=== PATIENT | female | born 1935 | race Caucasian/White ===

== ENCOUNTER 2021-12-13 16:40 | Emergency (ER) | payer OTHER ==
[~2021-12-13] VITALS: Ht 167.6 cm; Wt 50.3 kg
[2021-12-13] MEDS ORDERED: MELA3TAB41 PO (17:10)
[2021-12-13] MEDS ORDERED: ATOR40TA PO (17:10)
[2021-12-13] MEDS ORDERED: LATA2.5D15 EACHEYE (17:10)
[2021-12-13] MEDS ORDERED: LISI20TA30 PO (17:10)
[2021-12-13] MEDS ORDERED: BETA1TAB19 PO (17:10)
[2021-12-13] MEDS ORDERED: ASPI81TA31 PO (17:10)
[2021-12-13] MEDS ORDERED: DOCU100C36 PO (17:10)
[2021-12-13] MEDS ORDERED: FURO-152 PO (17:10)
--- NOTE | 2021-12-13 17:16 | NUR ---
PT out of ER for CT.
--- NOTE | 2021-12-13 17:57 | NUR ---
Pt to be d/c back to [facility], called [facility] for transport, eta 183.
--- NOTE | 2021-12-13 18:57 | NUR ---
Report given to transfering test clerk. all belongings sent w/ pt.Patient discharged to home in stable condition. Written and verbal after care instructions given. Patient verbalizes understanding of instructions. Stressed follow up or return to ER for worsening s/s.
[2021-12-13 19:00] VITALS: BP 114/60
== END 2021-12-13 19:11 | disposition home or self-care (01) ==
LOC: ER 16:48
DX: S00.83XA Contusion of other part of head, initial encounter (principal); S80.12XA Contusion of left lower leg, initial encounter; K21.9 Gastro-esophageal reflux disease without esophagitis; I25.2 Old myocardial infarction; I25.10 Atherosclerotic heart disease of native coronary artery without angina pectoris; E78.5 Hyperlipidemia, unspecified; I12.9 Hypertensive chronic kidney disease with stage 1 through stage 4 chronic kidney disease, or unspecified chronic kidney disease; N18.2 Chronic kidney disease, stage 2 (mild); Z88.5 Allergy status to narcotic agent; Z79.82 Long term (current) use of aspirin; Z79.899 Other long term (current) drug therapy; W01.0XXA Fall on same level from slipping, tripping and stumbling without subsequent striking against object, initial encounter; Y93.89 Activity, other specified; Y92.89 Other specified places as the place of occurrence of the external cause; Y99.8 Other external cause status
CPT/HCPCS: 70450; A4663

== ENCOUNTER 2021-12-25 10:00 | Inpatient (IN) | payer OTHER ==
[~2021-12-25] VITALS: Ht 154.9 cm; Wt 50.3 kg
[~2021-12-25 10:00] MED LIST: ASPI81TA31 PO; ATOR40TA PO; BETA1TAB19 PO; DOCU100C36 PO; FURO-152 PO; LATA2.5D15 EACHEYE; LISI20TA30 PO; MELA3TAB41 PO
[2021-12-25 10:55] LABS: MEAN CORPUSCULAR HEMOGLOBIN 24.7 uug (24.7-32.8); MEAN CORPUSCULAR VOLUME 76.5 fL (75.5-95.3); PLATELET COUNT (AUTO) 347 K/uL (179-408)
[2021-12-25] MEDS ORDERED: SERT25TA PO (10:59)
[2021-12-25] MEDS ORDERED: MV-M1TAB18 PO (10:59)
[2021-12-25] MEDS ORDERED: NAPR500T6 PO (10:59)
[2021-12-25] MEDS ORDERED: CYAN-51 PO (10:59)
[2021-12-25 11:10] LABS: ALANINE AMINOTRANSFERASE 17 U/L (14-59); ALKALINE PHOSPHATASE 65 U/L (50-136); ASPARTATE AMINOTRANSFERASE 18 U/L (15-37); BILIRUBIN,DIRECT 0.1 mg/dL (0.0-0.2); BILIRUBIN,TOTAL 0.5 mg/dL (0.2-1.0); CARBON DIOXIDE 28 mmol/L (21-32); CHLORIDE 104 mmol/L (98-107); GLUCOSE 131 mg/dL (74-106); LIPASE 105 U/L (73-393); POTASSIUM 3.5 mmol/L (3.5-5.1); UREA NITROGEN, BLOOD 16 mg/dL (7-18)
[2021-12-25] MEDS ORDERED: SWABABLE VALVE TRANSFER SET EA MC ONE (11:22)
[2021-12-25] MEDS ORDERED: IV NORMAL SALINE 250 ML IV ONE (11:22)
[2021-12-25] MEDS ORDERED: IOHEXOL 300MG/ML 100 ML INFUS..BTL ONE (11:22)
[2021-12-25 11:23] LABS: *BILIRUBIN,URIN NEGATIVE (NEGATIVE); *BLOOD, URINE 2+ (NEGATIVE); *CLARITY,URINE CLEAR (CLEAR); *COLOR,URINE YELLOW (YELLOW); *KETONES,URINE NEGATIVE (NEGATIVE); *UROBILINOGEN,URINE 0.2 E.U./dl (NORMAL); LEUKOCYTE ESTERASE ,URINE 1+ (NEGATIVE); NITRITE, URINE NEGATIVE (NEGATIVE); PH,URINE 5.5 (5.0-8.0); UGLUCOSE NEGATIVE (NEGATIVE)
--- NOTE | 2021-12-25 11:41 | NUR ---
PT IS IN ROOM #2B. DR CORTES EVALUATED THE PT.
[2021-12-25] MEDS: CEFTRIAXONE 1 G in IV DEXTROSE 5% 50 ML IV SCH (13:54)
[2021-12-25] MEDS ORDERED: CEFTRIAXONE /D5W 50ML IVPB **ER PYXIS IV ONE (14:07)
[2021-12-25 15:25] VITALS: BP 128/65
--- NOTE | 2021-12-25 15:33 | NUR ---
REPORT WAS GIVEN TO RN M/S. PT WAS TRANSFERED TO ROOM #311.
[2021-12-25 15:35] LABS: RBC,URINE 50-80 /HPF (0-3)
[2021-12-25 15:36] LABS: BACTERIA,URINE NONE SEEN /HPF (NONE SEEN); SQUAMOUS EPITHELIAL CELL,UR FEW /HPF (NONE SEEN)
--- NOTE | 2021-12-25 15:58 | NUR ---
86 YEAR OLD FEMALE RECEIVED TO ROOM 311.PT IS AXOX4 .ORIENT THE PT TO ROOM CALL LIGHT WITH IN REACH VS ARE STABLE MD NOTIFIED FOR THE ADMISSION
--- NOTE | 2021-12-25 19:00 | NUR ---
Received patient on bed, alert, no shortness of breath noted, no complaint of pain.
[2021-12-25] MEDS ORDERED: MAGNESIUM HYDROXIDE 30 ML LIQUID UDC PO PRN (20:00)
[2021-12-25] MEDS ORDERED: ONDANSETRON 4 MG/2 ML VIAL IV PRN (20:00)
[2021-12-25] MEDS ORDERED: ACETAMINOPHEN 325 MG TABLET PO PRN (20:00)
[2021-12-25] MEDS: ATORVASTATIN 40 MG TABLET PO SCH (21:51)
[2021-12-25] MEDS: MELATONIN 3 MG TABLET PO SCH (21:51)
[2021-12-26] MEDS: PANTOPRAZOLE SODIUM 40 MG TABLET.DR PO SCH (06:18)
--- NOTE | 2021-12-26 06:22 | NUR ---
Patient slept well at night. IV line accidentally removed while she was sleeping.
[2021-12-26 06:46] LABS: HEMATOCRIT 26.4 % (31.2-41.9); MEAN CORPUSCULAR HEMOGLOBIN 24.4 uug (24.7-32.8); MEAN CORPUSCULAR VOLUME 76.7 fL (75.5-95.3); PLATELET COUNT (AUTO) 305 K/uL (179-408)
[2021-12-26 07:26] LABS: BILIRUBIN,TOTAL 0.4 mg/dL (0.2-1.0); CREATININE 0.6 mg/dL (0.6-1.3); MAGNESIUM 2.2 mg/dL (1.8-2.4); PHOSPHOROUS 3.5 mg/dL (2.5-4.9); POTASSIUM 3.8 mmol/L (3.5-5.1)
[2021-12-26 08:00] VITALS: BP 149/70
[2021-12-26 08:00] LABS: THYROID STIMULATING HORMONE 0.435 mIU/mL (0.358-3.740)
[2021-12-26] MEDS ORDERED: Medication Not On Formulary EA (Sertraline Hcl (Zoloft) 1 TAB) PO SCH (09:00)
[2021-12-26] MEDS ORDERED: Medication Not On Formulary EA (Mv-Mn/Iron/FA/Herbal Cmplx#190 (Vitamin D3 Complete Capl PO SCH (09:00)
[2021-12-26] MEDS ORDERED: BETA CAROTENE/VIT C & E/MIN TABLET PO SCH (09:00)
[2021-12-26] MEDS: ASPIRIN 81 MG TAB.CHEW PO SCH (09:45)
[2021-12-26] MEDS: DOCUSATE SODIUM 100 MG CAPSULE PO SCH ×2 (09:45→16:37)
[2021-12-26] MEDS: SERTRALINE HCL 50 MG TABLET PO SCH (09:45)
[2021-12-26] MEDS: FUROSEMIDE 20 MG TABLET PO SCH (09:46)
[2021-12-26] MEDS: MULTIVIT, IRON, MIN NO. 8, FA TABLET PO SCH (09:46)
[2021-12-26] MEDS: LISINOPRIL 20 MG TABLET PO SCH (09:47)
[2021-12-26] MEDS: CYANOCOBALAMIN 1,000 MCG TABLET PO SCH (09:47)
--- NOTE | 2021-12-26 11:04 | NUR ---
Pt is a/ox 3-4, forgetful at times. pt stated that she lives in a facility possible rehab but does not recall name. No complaint of pain at this time. Call light within reach, comfort measures provided. Will continue to monitor.
[2021-12-26 11:24] VITALS: BP 124/63
[2021-12-26] MEDS: CEFTRIAXONE 1 G in IV DEXTROSE 5% 50 ML IV SCH (14:13)
[2021-12-26 16:21] VITALS: BP 123/45
[2021-12-26] MEDS: LATANOPROST OPHT DROP 2.5 ML BOTTLE EACHEYE SCH (20:36)
[2021-12-26] MEDS: ATORVASTATIN 40 MG TABLET PO SCH (20:36)
[2021-12-26] MEDS: MELATONIN 3 MG TABLET PO SCH (20:36)
[2021-12-26 20:53] VITALS: BP 103/58
--- NOTE | 2021-12-27 03:43 | NUR ---
Patient is uncooperative, attempting to leave hospital, wanting to walk home. Patient is concerned in regards to right knee scab. made aware wound consult will be done tomorrow but patient is adamant about going home to put on medicine her surgeon gave her. Patient unable to name medicine or surgeon.
--- NOTE | 2021-12-27 05:27 | NUR ---
Patient slept seldom. Frequent safety checks made by staff. Confusion noted with multiple episodes of getting out of bed without calling for assistance. Still noted with unsteady gait, weakness most prominent to right leg. Patient is a high risk for falls. All needs attended, safety measures applied.
[2021-12-27] MEDS: PANTOPRAZOLE SODIUM 40 MG TABLET.DR PO SCH (06:17)
[2021-12-27] MEDS: CYANOCOBALAMIN 1,000 MCG TABLET PO SCH (08:06)
[2021-12-27] MEDS: ASPIRIN 81 MG TAB.CHEW PO SCH (08:06)
[2021-12-27] MEDS: FUROSEMIDE 20 MG TABLET PO SCH (08:06)
[2021-12-27] MEDS: MULTIVIT, IRON, MIN NO. 8, FA TABLET PO SCH (08:06)
[2021-12-27] MEDS: DOCUSATE SODIUM 100 MG CAPSULE PO SCH ×2 (08:06→17:18)
[2021-12-27] MEDS: LISINOPRIL 20 MG TABLET PO SCH (08:06)
[2021-12-27] MEDS: SERTRALINE HCL 50 MG TABLET PO SCH (08:06)
[2021-12-27 09:23] LABS: HEMATOCRIT 30.5 % (31.2-41.9); MEAN CORPUSCULAR HEMOGLOBIN 24.6 uug (24.7-32.8); MEAN CORPUSCULAR VOLUME 76.2 fL (75.5-95.3); PLATELET COUNT (AUTO) 355 K/uL (179-408)
[2021-12-27] MEDS ORDERED: MIRALAX 17 GM POWD.PACK PO ONE (09:30)
[2021-12-27 12:00] VITALS: BP 130/68
[2021-12-27] MEDS: CEFTRIAXONE 1 G in IV DEXTROSE 5% 50 ML IV SCH (12:49)
[2021-12-27] MEDS: SOD FERRIC GLUC COMPLX/SUCROSE 125 MG in IV NORMAL SALINE 100 ML IV SCH (13:24)
--- NOTE | 2021-12-27 14:01 | NUR ---
WOUND CARE CONSULT: PT PRESENTS INDEPENDENT WITH BED MOBILITY, CONTINENT AND WITH LARGE DRY ESCHAR TO RT KNEE, PRESENT ON ADMISSION. DR KODAK HALE CALLED FOR SURGICAL CONSULT. IN AGREEMENT WITH PLAN OF CARE.
--- NOTE | 2021-12-27 15:38 | NUR ---
patient frequently gets up from bed and attempts to ambulate, gait is unsteady, redirected patient but patient is forgetful and continues to get up from bed. very close monitoring provided for safety.
[2021-12-27 16:00] VITALS: BP 135/83
--- NOTE | 2021-12-27 19:30 | NUR ---
Patient attempting to get out of bed. She is alert to self with confusion. Reorientation to reality and environment with little help. Constant monitoring needed for safety since patient gait is weak and unsteady. Will continue to make frequent checks with the assistance of other staff and bed alarm. Denies any chest pain. Right FA IV is intact and patent. Call light within reach.
[2021-12-27 20:00] VITALS: BP 140/57
[2021-12-27] MEDS: MELATONIN 3 MG TABLET PO SCH (21:14)
[2021-12-27] MEDS: ATORVASTATIN 40 MG TABLET PO SCH (21:14)
[2021-12-27] MEDS: LATANOPROST OPHT DROP 2.5 ML BOTTLE EACHEYE SCH (21:14)
[2021-12-28 04:00] VITALS: BP 135/55
[2021-12-28] MEDS: PANTOPRAZOLE SODIUM 40 MG TABLET.DR PO SCH (06:28)
[2021-12-28] MEDS: MULTIVIT, IRON, MIN NO. 8, FA TABLET PO SCH (08:04)
[2021-12-28] MEDS: ASPIRIN 81 MG TAB.CHEW PO SCH (08:04)
[2021-12-28] MEDS: DOCUSATE SODIUM 100 MG CAPSULE PO SCH (08:04)
[2021-12-28] MEDS: LISINOPRIL 20 MG TABLET PO SCH (08:05)
[2021-12-28] MEDS: CYANOCOBALAMIN 1,000 MCG TABLET PO SCH (08:05)
[2021-12-28] MEDS: SERTRALINE HCL 50 MG TABLET PO SCH (08:05)
[2021-12-28] MEDS: FUROSEMIDE 20 MG TABLET PO SCH (08:05)
[2021-12-28] MEDS ORDERED: ATOR10TA PO (11:28)
[2021-12-28] MEDS ORDERED: CEPH500C2 PO (11:28)
[2021-12-28] MEDS ORDERED: ACID1TAB4 PO (11:28)
[2021-12-28 11:29] VITALS: BP 139/77
[2021-12-28] MEDS: CEFTRIAXONE 1 G in IV DEXTROSE 5% 50 ML IV SCH (12:53)
[2021-12-28] MEDS: SOD FERRIC GLUC COMPLX/SUCROSE 125 MG in IV NORMAL SALINE 100 ML IV SCH (13:49)
--- NOTE | 2021-12-28 15:54 | NUR ---
[facility] all questions answered.
[2021-12-28 16:05] VITALS: BP 111/55
--- NOTE | 2021-12-28 16:30 | NUR ---
new discharge orders, unable to to review discharge instructions with patient due to cognitive impairment. belonging list inventory complete.
--- NOTE | 2021-12-28 16:44 | NUR ---
power chisel operator in unit, report given all questions answered.
[2021-12-28] MEDS ORDERED: ENSURE ENLIVE (VAN) 240 ML LIQUID PO SCH (17:00)
[2021-12-29] MEDS ORDERED: NUTRISOURCE FIBER 4 GM PACKET GT SCH (09:00)
== END 2021-12-28 16:46 | DRG 689 ==
LOC: ER 10:00 → MEDSURG3 15:07
PROVIDERS: ADMIT Internal Medicine; ATTEND Internal Medicine
DX: N13.6 Pyonephrosis (principal); E43 Unspecified severe protein-calorie malnutrition; D68.59 Other primary thrombophilia; I13.0 Hypertensive heart and chronic kidney disease with heart failure and stage 1 through stage 4 chronic kidney disease, or unspecified chronic kidney disease; K92.2 Gastrointestinal hemorrhage, unspecified; Z96.641 Presence of right artificial hip joint; Z90.710 Acquired absence of both cervix and uterus; H54.8 Legal blindness, as defined in USA; Z74.09 Other reduced mobility; R73.03 Prediabetes; E21.3 Hyperparathyroidism, unspecified; B35.1 Tinea unguium; K21.9 Gastro-esophageal reflux disease without esophagitis; K44.9 Diaphragmatic hernia without obstruction or gangrene; E78.5 Hyperlipidemia, unspecified; K59.00 Constipation, unspecified; D50.0 Iron deficiency anemia secondary to blood loss (chronic); F03.90 Unspecified dementia, unspecified severity, without behavioral disturbance, psychotic disturbance, mood disturbance, and anxiety; I25.2 Old myocardial infarction; I50.9 Heart failure, unspecified; M19.90 Unspecified osteoarthritis, unspecified site; N18.2 Chronic kidney disease, stage 2 (mild); E78.00 Pure hypercholesterolemia, unspecified; I25.10 Atherosclerotic heart disease of native coronary artery without angina pectoris; I73.9 Peripheral vascular disease, unspecified; I70.0 Atherosclerosis of aorta; G56.02 Carpal tunnel syndrome, left upper limb; G62.9 Polyneuropathy, unspecified; Z85.828 Personal history of other malignant neoplasm of skin; Z96.651 Presence of right artificial knee joint; H35.30 Unspecified macular degeneration; Z95.1 Presence of aortocoronary bypass graft; Z79.82 Long term (current) use of aspirin; Z88.5 Allergy status to narcotic agent; I35.1 Nonrheumatic aortic (valve) insufficiency; Z20.822 Contact with and (suspected) exposure to COVID-19; Z87.442 Personal history of urinary calculi; Z87.440 Personal history of urinary (tract) infections; Z79.899 Other long term (current) drug therapy
CPT/HCPCS: 36415; 71045; 82378; 83550; 83605; 83690; 83735; 84100; 84443; 84484; 85025; 85730; 87040; 87086; 93005; 97161; A4663; G0378; J0696; J2916; J3490; J7030; J7050; J7060; Q9967

== ENCOUNTER 2022-01-18 09:47 | Emergency (ER) | payer OTHER ==
[~2022-01-18] VITALS: Ht 154.9 cm; Wt 50.8 kg
[~2022-01-18 09:47] MED LIST changes: +ACID1TAB4 PO; +ATOR10TA PO; -ATOR40TA PO; +CEPH500C2 PO; +CYAN-51 PO; +MV-M1TAB18 PO; +SERT25TA PO
[2022-01-18] MEDS ORDERED: IOHEXOL 300MG/ML 100 ML INFUS..BTL ONE (10:12)
[2022-01-18] MEDS ORDERED: IV NORMAL SALINE 100 ML BAG IV ONE (10:15)
[2022-01-18] MEDS ORDERED: ONDANSETRON 4 MG/2 ML VIAL IV ONE (10:15)
[2022-01-18] MEDS ORDERED: AMOX500T2 PO (10:17)
[2022-01-18] MEDS ORDERED: NAPR500T6 PO (10:17)
[2022-01-18] MEDS ORDERED: MV-M1TAB18 PO (10:17)
[2022-01-18] MEDS ORDERED: ONDANSETRON 4 MG/2 ML VIAL ONE (10:20)
--- NOTE | 2022-01-18 10:24 | NUR ---
Patient refused IV MD Wicho notified.
[2022-01-18] MEDS ORDERED: KETO5DRO83 EACHEYE (10:39)
[2022-01-18 12:01] LABS: HEMATOCRIT 33.8 % (31.2-41.9); MEAN CORPUSCULAR HEMOGLOBIN 25.9 uug (24.7-32.8); MEAN CORPUSCULAR VOLUME 80.3 fL (75.5-95.3); PLATELET COUNT (AUTO) 318 K/uL (179-408)
[2022-01-18 12:04] LABS: CARBON DIOXIDE 26 mmol/L (21-32); CHLORIDE 104 mmol/L (98-107); CREATININE 0.9 mg/dL (0.6-1.3); GLUCOSE 101 mg/dL (74-106); POTASSIUM 4.7 mmol/L (3.5-5.1); UREA NITROGEN, BLOOD 21 mg/dL (7-18)
[2022-01-18 12:10] LABS: ALANINE AMINOTRANSFERASE 25 U/L (14-59); ALKALINE PHOSPHATASE 65 U/L (50-136); ASPARTATE AMINOTRANSFERASE 25 U/L (15-37); BILIRUBIN,TOTAL 0.5 mg/dL (0.2-1.0); TOTAL PROTEIN, SERUM 6.8 g/dL (6.4-8.2)
[2022-01-18 12:19] LABS: *BILIRUBIN,URIN NEGATIVE (NEGATIVE); *BLOOD, URINE 1+ (NEGATIVE); *CLARITY,URINE CLEAR (CLEAR); *COLOR,URINE YELLOW (YELLOW); *KETONES,URINE NEGATIVE (NEGATIVE); *UROBILINOGEN,URINE 0.2 E.U./dl (NORMAL); LEUKOCYTE ESTERASE ,URINE TRACE (NEGATIVE); NITRITE, URINE NEGATIVE (NEGATIVE); UGLUCOSE NEGATIVE (NEGATIVE)
--- NOTE | 2022-01-18 12:34 | NUR ---
PO challenged started.
[2022-01-18 12:48] LABS: BACTERIA,URINE FEW /HPF (NONE SEEN); SQUAMOUS EPITHELIAL CELL,UR FEW /HPF (NONE SEEN)
--- NOTE | 2022-01-18 13:10 | NUR ---
Patient passed po challenge, able to take 500ml of hospital-provided juice & sherbet.
--- NOTE | 2022-01-18 13:29 | NUR ---
IV removed. Catheter intact and site benign. Pressure and 4x4 gauze applied to site. No bleeding noted. Patient discharged to home in stable condition. Written and verbal after care instructions given. Patient verbalized understanding and compliance of instructions. Stressed follow up with primary doctor and urologist or return to ER for worsening s/s. No vomiting seen while in ER. Patient voided once in the bathroom.
--- NOTE | 2022-01-18 13:37 | NUR ---
Patient is seen waiting comfortably in the ER waiting room (as seen in the camera view). Patient is waiting for her ride.
[2022-01-18 16:15] LABS: LIPASE 104 U/L (73-393)
== END 2022-01-18 13:39 ==
LOC: ER 09:52
DX: N13.2 Hydronephrosis with renal and ureteral calculous obstruction (principal); E21.3 Hyperparathyroidism, unspecified; H54.8 Legal blindness, as defined in USA; H35.30 Unspecified macular degeneration; E78.00 Pure hypercholesterolemia, unspecified; I25.2 Old myocardial infarction; Z85.828 Personal history of other malignant neoplasm of skin; I10 Essential (primary) hypertension; R11.2 Nausea with vomiting, unspecified; G62.9 Polyneuropathy, unspecified; I73.9 Peripheral vascular disease, unspecified; Z88.5 Allergy status to narcotic agent; Z79.899 Other long term (current) drug therapy
CPT/HCPCS: 36415; 71045; 74177; 80053; 81001; 83690; 83880; 84484; 85025; 85610; 87086; 99285; Q9967; A4663; J2405; J3490

== ENCOUNTER 2022-04-27 04:30 | Emergency (ER) | payer OTHER ==
[~2022-04-27] VITALS: Ht 154.9 cm; Wt 50.3 kg
[~2022-04-27 04:30] MED LIST changes: +AMOX500T2 PO; +NAPR500T6 PO
--- NOTE | 2022-04-27 04:40 | NUR ---
Pt bib ra83 from [facility] [place] for left upper quadrant abd pain with nausea x 20 min officer captain.
--- NOTE | 2022-04-27 04:45 | NUR ---
Dr. Sena on bedside for MSE.
[2022-04-27 04:55] LABS: HEMATOCRIT 30.1 % (31.2-41.9); MEAN CORPUSCULAR HEMOGLOBIN 26.7 uug (24.7-32.8); MEAN CORPUSCULAR VOLUME 82.2 fL (75.5-95.3); PLATELET COUNT (AUTO) 278 K/uL (179-408)
[2022-04-27] MEDS ORDERED: IV NORMAL SALINE 1000 ML BAG IV ONE (05:00)
[2022-04-27 05:16] LABS: *BILIRUBIN,URIN NEGATIVE (NEGATIVE); *BLOOD, URINE 2+ (NEGATIVE); *CLARITY,URINE CLEAR (CLEAR); *COLOR,URINE YELLOW (YELLOW); *KETONES,URINE NEGATIVE (NEGATIVE); *UROBILINOGEN,URINE 0.2 E.U./dl (NORMAL); LEUKOCYTE ESTERASE ,URINE 1+ (NEGATIVE); NITRITE, URINE NEGATIVE (NEGATIVE); UGLUCOSE NEGATIVE (NEGATIVE)
[2022-04-27 05:20] LABS: BILIRUBIN,DIRECT 0.1 mg/dL (0.0-0.2); BILIRUBIN,TOTAL 0.3 mg/dL (0.2-1.0); POTASSIUM 4.9 mmol/L (3.5-5.1)
[2022-04-27 05:30] LABS: RBC,URINE 20-50 /HPF (0-3)
[2022-04-27 05:31] LABS: BACTERIA,URINE FEW /HPF (NONE SEEN); SQUAMOUS EPITHELIAL CELL,UR FEW /HPF (NONE SEEN)
[2022-04-27] MEDS ORDERED: GENTAMICIN SULFATE 20 MG/2 ML VIAL IV ONE (05:45)
[2022-04-27] MEDS ORDERED: GENTAMICIN SULFATE 80 MG/2 ML VIAL ONE (05:48)
--- NOTE | 2022-04-27 05:49 | NUR ---
Patient back from CT.
[2022-04-27] MEDS ORDERED: LOPE2CAP40 PO (05:55)
[2022-04-27] MEDS ORDERED: SULF1TAB48 PO (05:55)
--- NOTE | 2022-04-27 05:57 | NUR ---
call to [facility] at [phone] and spoke to Samantha caregiver and gave her an update on condition of the pt and informed her she will be discharged soon we will arrange transport for the pt back to her care home and provide discharge instructions.
--- NOTE | 2022-04-27 06:56 | NUR ---
Report given to day shift nurse Albert.
--- NOTE | 2022-04-27 08:45 | NUR ---
[facility] ambulance [id number], patient is for discharge to assisted living home. Patient was assisted to bathroom with 1 person assist. New diaper on.
--- NOTE | 2022-04-27 09:05 | NUR ---
Patient is resting comfortably on gurney with eyes closed, soft snoring heard, respiration:easy, NAD, pending ambulance nut picker.
--- NOTE | 2022-04-27 09:23 | NUR ---
IV removed. Catheter intact and site benign. Pressure and 4x4 gauze applied to site. No bleeding noted. Patient discharged to assisted living home in stable condition. Written and verbal after care instructions given to patient, patient's caregiver (by fast food shift supervisor staff) and MEAT WRAPPERAshley Aviles. Patient, private caregiver and EMT verbalized understanding and compliance of instructions. Stressed follow up with primary doctor or return to ER for worsening s/s.
[2022-04-27 09:26] VITALS: BP 115/69
[2022-04-28] MEDS ORDERED: IV NORMAL SALINE 250 ML IV ONE (21:13)
[2022-04-28] MEDS ORDERED: SWABABLE VALVE TRANSFER SET EA MC ONE (21:13)
[2022-04-28] MEDS ORDERED: IOHEXOL 350 100 ML INFUS..BTL ONE (21:13)
[2022-04-28] MEDS ORDERED: CYAN100T44 PO (23:01)
[2022-04-28] MEDS ORDERED: CHOL400C5 PO (23:01)
[2022-04-28] MEDS ORDERED: FURO20TA4 PO (23:01)
[2022-04-28] MEDS ORDERED: DORZ10DR11 OP (23:01)
[2022-04-28] MEDS ORDERED: SULF1TAB48 PO (23:01)
[2022-04-30] MEDS ORDERED: CEPH500C2 PO (16:08)
[2022-04-30] MEDS ORDERED: PANT40TA2 PO (16:08)
== END 2022-04-27 09:27 | disposition home or self-care (01) ==
LOC: ER 05:05
DX: R19.7 Diarrhea, unspecified (principal); E86.0 Dehydration; D64.9 Anemia, unspecified; N13.2 Hydronephrosis with renal and ureteral calculous obstruction; F09 Unspecified mental disorder due to known physiological condition; Z20.822 Contact with and (suspected) exposure to COVID-19; Z79.899 Other long term (current) drug therapy; H35.30 Unspecified macular degeneration; H54.8 Legal blindness, as defined in USA; I73.9 Peripheral vascular disease, unspecified; I25.10 Atherosclerotic heart disease of native coronary artery without angina pectoris; Z85.828 Personal history of other malignant neoplasm of skin; E21.3 Hyperparathyroidism, unspecified; G62.9 Polyneuropathy, unspecified; I25.2 Old myocardial infarction; Z79.82 Long term (current) use of aspirin
CPT/HCPCS: 36415; 71045; 74176; 80048; 80076; 81001; 83605; 83690; 83735; 85025; 87086; 87426; 93005; 96365; 96366; 99285; J1580; J7040 ×2; A4663; C1758; Q9967

== ENCOUNTER 2022-04-28 20:02 | Inpatient (IN) | payer OTHER ==
[~2022-04-28] VITALS: Ht 165.1 cm; Wt 50.3 kg
[~2022-04-28 20:02] MED LIST changes: -AMOX500T2 PO; -CEPH500C2 PO; +LOPE2CAP40 PO; +SULF1TAB48 PO
[2022-04-28] MEDS ORDERED: ASPIRIN 81 MG TAB.CHEW PO ONE (20:15)
[2022-04-28] MEDS ORDERED: NITROGLYCERIN OINT 1 GM PACKET TP ONE ×2 (20:15→20:24)
[2022-04-28] MEDS ORDERED: ONDANSETRON 4 MG/2 ML VIAL IV ONE (20:15)
[2022-04-28] MEDS ORDERED: ASPIRIN 81 MG TAB.CHEW ONE (20:20)
[2022-04-28] MEDS ORDERED: ONDANSETRON 4 MG/2 ML VIAL ONE (20:21)
[2022-04-28 20:43] LABS: HEMATOCRIT 22.1 % (31.2-41.9); MEAN CORPUSCULAR HEMOGLOBIN 26.6 uug (24.7-32.8); MEAN CORPUSCULAR VOLUME 80.7 fL (75.5-95.3); PLATELET COUNT (AUTO) 274 K/uL (179-408)
[2022-04-28 20:48] LABS: ALANINE AMINOTRANSFERASE 12 U/L (14-59); ALKALINE PHOSPHATASE 69 U/L (50-136); ASPARTATE AMINOTRANSFERASE 12 U/L (15-37); BILIRUBIN,DIRECT 0.1 mg/dL (0.0-0.2); BILIRUBIN,TOTAL 0.4 mg/dL (0.2-1.0); CARBON DIOXIDE 22 mmol/L (21-32); CHLORIDE 106 mmol/L (98-107); CREATININE 1.1 mg/dL (0.6-1.3); GLUCOSE 115 mg/dL (74-106); POTASSIUM 3.9 mmol/L (3.5-5.1); TOTAL PROTEIN, SERUM 5.8 g/dL (6.4-8.2); UREA NITROGEN, BLOOD 29 mg/dL (7-18)
--- NOTE | 2022-04-28 20:51 | NUR ---
RECEIVED PATIENT RA 82. REPORT OBTAINED. PLACED ON CONTINUOUS MONITORING. DR. BISHOP EXAMINED PATIENT AT 2019. ORDERS CARRIED OUT.
[2022-04-28 21:13] LABS: *OCCULT BLOOD STOOL POSITIVE (NEGATIVE)
[2022-04-28] MEDS ORDERED: PANTOPRAZOLE SODIUM 40 MG VIAL ONE (21:15)
[2022-04-28] MEDS ORDERED: PANTOPRAZOLE SODIUM IV 80 MG in IV DEXTROSE 5% 100 ML IV ONE (21:15)
--- NOTE | 2022-04-28 21:32 | NUR ---
PATIENT CONSENTED FOR CTA WITH CONTRAST VERIFIED WITH GUZZLER BUILDER. PATIENT CONFIRMEND NOT TAKING DIABETIC MEDICATION SPECIFICALLY GLUCOPHAGE. FINANCIAL COMPLIANCE OFFICER TRANSPORTED PATIEN TO CT FOR PROCEDURE.
--- NOTE | 2022-04-28 22:36 | NUR ---
PATIENT RESTING COMFORTABLY. DENIES ANY COMPLAINTS. BLOOD PRESSURE IN 90'S; REPORTED TO DR. BISHOP. WILL CONTINUE ON MONITOR. IV INFUSION OF 500ML ONGOING.
[2022-04-28] MEDS ORDERED: IV NORMAL SALINE 500 ML BAG IV ONE (22:45)
[2022-04-28] MEDS ORDERED: MAGNESIUM HYDROXIDE 30 ML LIQUID UDC PO PRN (23:00)
[2022-04-28] MEDS ORDERED: REMEDY ESSENTIAL ZINC PASTE 113 GM TP PRN (23:00)
[2022-04-28] MEDS ORDERED: IV NS 1000 ML 1,000 ML IV PRN (23:00)
[2022-04-28] MEDS ORDERED: ACETAMINOPHEN 325 MG TABLET PO PRN (23:00)
[2022-04-28] MEDS ORDERED: ONDANSETRON 4 MG/2 ML VIAL IV PRN (23:00)
[2022-04-28] MEDS ORDERED: DORZ10DR11 OP (23:01)
[2022-04-28] MEDS ORDERED: CHOL400C5 PO (23:01)
[2022-04-28] MEDS ORDERED: CYAN100T44 PO (23:01)
[2022-04-28] MEDS ORDERED: FURO20TA4 PO (23:01)
[2022-04-28] MEDS ORDERED: SULF1TAB48 PO (23:01)
--- NOTE | 2022-04-28 23:11 | NUR ---
Patient is resting comfortably; on continuous monitoring. In and out catheterization performed for urine sample collection; and sent to laboratory for testing.
--- NOTE | 2022-04-28 23:12 | NUR ---
Aubrey, FIELD ARTILLERY SENIOR SERGEANT Hospitalist notified of admission, and will be admitted accordingly. The health plan was informed and their documentary review per their case coordinator stated that patient is for observation. Dr. Nunes's clinical interpretation clearly suggest necessity for inpatient admission as evidenced by multiple emergency room visit, blood count abnormality, and N/V complaint. Management of patient include cardiac care and gastrointestinal bleeding. Serial blood works performed to ensure safety. fleet maintenance manager of health plan unable to further reason. Request for idta-ns-fapp was denied and stated that patient meets observation, leading to ED physician and FIELD ARTILLERY SENIOR SERGEANT Hospitalist clinical discussion of the case.
[2022-04-28] MEDS ORDERED: PANTOPRAZOLE SODIUM 40 MG VIAL IV SCH (23:15)
[2022-04-28] MEDS ORDERED: CEFTRIAXONE 1 G in IV DEXTROSE 5% 50 ML IV SCH (23:15)
[2022-04-28 23:34] LABS: *BILIRUBIN,URIN NEGATIVE (NEGATIVE); *BLOOD, URINE 2+ (NEGATIVE); *CLARITY,URINE CLEAR (CLEAR); *COLOR,URINE YELLOW (YELLOW); *KETONES,URINE NEGATIVE (NEGATIVE); *UROBILINOGEN,URINE 0.2 E.U./dl (NORMAL); LEUKOCYTE ESTERASE ,URINE 1+ (NEGATIVE); NITRITE, URINE NEGATIVE (NEGATIVE); PH,URINE 5.5 (5.0-8.0); UGLUCOSE NEGATIVE (NEGATIVE)
[2022-04-29] MEDS ORDERED: CEFTRIAXONE /D5W 50ML IVPB **ER PYXIS IV ONE ×2 (00:28→23:16)
[2022-04-29 01:14] LABS: HEMATOCRIT 19.8 % (31.2-41.9)
--- NOTE | 2022-04-29 01:14 | NUR ---
CRITICAL LABORATORY RESULT: H/H 6.6.
--- NOTE | 2022-04-29 01:50 | NUR ---
PATIENT ON CONTINUOUS MONITORING. HOSPITALIST NOTIFIED OF CRITICAL LABORATORY VALUE, CROSSMATCH FOR 1 UNIT WAS CALLED TO KELLEY IN LABORATORY FOR ORDER ASSISTANCE.
[2022-04-29] MEDS ORDERED: CEFTRIAXONE 1 G in IV DEXTROSE 5% 50 ML IV SCH ×2 (01:51→21:00)
--- NOTE | 2022-04-29 02:44 | NUR ---
BLOOD TRANSFUSION 1 UNIT INITIATED. ON CLOSE MONITORING. REFER TO BLOOD TRANSFUSION RECORD. CONSENT OBTAINED. DISCUSSED WITH PATIENT ON PURPOSE AND REASON BY DR. BISHOP.
[2022-04-29 02:59] LABS: BACTERIA,URINE MODERATE /HPF (NONE SEEN); SQUAMOUS EPITHELIAL CELL,UR FEW /HPF (NONE SEEN)
--- NOTE | 2022-04-29 04:10 | NUR ---
PATIENT ASLEEP. ON CONTINOUS MONITORING. VITAL SIGNS STABLE. NSR. BLOOD TRANSFUSION INFUSING WELL.
--- NOTE | 2022-04-29 06:34 | NUR ---
PATIENT AWAKE AND VERBAL OF NEEDS. PLEASANTLY CONFUSED. REORIENTED TO PLACE, TIME, AND EVENTS. APPPROPRIATE RESPONSES NOTED. AD DELMI IN BED. DENIES ANY PAIN OR DISTRESS. SALINE LOCK IN PLACE.
--- NOTE | 2022-04-29 06:44 | NUR ---
Loly rasmussen in [facility] - 04/29/22 at 0645 by TAI WESLEY POWER HOSPITALIST UPDATE OF CARE.
--- NOTE | 2022-04-29 06:45 | NUR ---
TONO, SPORTS REPORTER HOSPITALIST UPDATED OF CARE, INCLUDING BLOOD TRANSFUSION AND STABILITY OF PATIENT.
--- NOTE | 2022-04-29 07:16 | NUR ---
Received pt. AAOX1. intermittent forgetfull and easily oriented. Sinus rhythm rate of 68 sbp of 96/52. RR 18, denies any pain, nausea or vomiting. Afebrile 97.7. Will continue to monitor.
--- NOTE | 2022-04-29 07:41 | NUR ---
As per nursing cleaning supervisor pt. will remain in the emergency room until room and nurse available to take pt. in. Awaiting for call.
[2022-04-29 08:08] LABS: HEMATOCRIT 24.2 % (31.2-41.9); MEAN CORPUSCULAR HEMOGLOBIN 27.3 uug (24.7-32.8); MEAN CORPUSCULAR VOLUME 81.3 fL (75.5-95.3); PLATELET COUNT (AUTO) 214 K/uL (179-408)
[2022-04-29] MEDS: DOCUSATE SODIUM 100 MG CAPSULE PO SCH ×2 (08:33→16:06)
[2022-04-29] MEDS: BETA CAROTENE/VIT C & E/MIN TABLET PO SCH (08:34)
[2022-04-29] MEDS: CYANOCOBALAMIN 1,000 MCG TABLET PO SCH (08:34)
[2022-04-29] MEDS: CHOLECALCIFEROL 1,000 UNIT TABLET PO SCH (08:34)
[2022-04-29] MEDS: SERTRALINE HCL 50 MG TABLET PO SCH (08:35)
[2022-04-29] MEDS ORDERED: ACETAMINOPHEN 325 MG TABLET ONE (08:48)
[2022-04-29] MEDS ORDERED: PANTOPRAZOLE SODIUM 40 MG VIAL IV SCH (09:00)
[2022-04-29] MEDS ORDERED: DORZOLAMIDE/TIMOLOL OPHT DROP 10 ML BOTTLE OP SCH (09:00)
[2022-04-29] MEDS ORDERED: ASPIRIN 81 MG TAB.CHEW PO SCH (09:00)
[2022-04-29] MEDS ORDERED: LISINOPRIL 20 MG TABLET PO SCH (09:00)
[2022-04-29 09:18] LABS: BILIRUBIN,TOTAL 0.7 mg/dL (0.2-1.0); CREATININE 1.1 mg/dL (0.6-1.3); MAGNESIUM 1.8 mg/dL (1.8-2.4); PHOSPHOROUS 3.8 mg/dL (2.5-4.9); POTASSIUM 3.6 mmol/L (3.5-5.1); TOTAL PROTEIN, SERUM 5.3 g/dL (6.4-8.2)
--- NOTE | 2022-04-29 09:34 | NUR ---
Patient seen by sampler and test preparer Dr. Mercer, orders to continue with care plan received.
[2022-04-29] MEDS ORDERED: PANTOPRAZOLE SODIUM 40 MG VIAL ONE (11:01)
[2022-04-29] MEDS: PANTOPRAZOLE SODIUM 40 MG VIAL IV SCH ×2 (11:04→23:15)
--- NOTE | 2022-04-29 12:42 | NUR ---
Hr. of 62 RR 22 sbop of 116/52.
--- NOTE | 2022-04-29 14:19 | NUR ---
A call back from Familia Nunez at this time He was informed that pt. is becoming increasingly agitated and confused attempting to leave emergency room and stating "I have the right to leave AMA and you can't stop me". As ordered by MD case-management called to contact family.
--- NOTE | 2022-04-29 16:00 | NUR ---
One to one sitter at bedside. notified of pt. intermittent confusion.
--- NOTE | 2022-04-29 16:00 | NUR ---
98.4 HR of 70 and sbp 104/41. patient remains confused intermittently. denies any pain.
[2022-04-29] MEDS: DORZOLAMIDE/TIMOLOL OPHT DROP 10 ML BOTTLE EACHEYE SCH (16:07)
--- NOTE | 2022-04-29 17:35 | NUR ---
Attending at bedside to examine pt.
--- NOTE | 2022-04-29 18:18 | NUR ---
As per corrections unit supervisor pt. may go up to room 309 with next shift arrival.
--- NOTE | 2022-04-29 19:11 | NUR ---
Bedside report given to rn. Arteaga and informed her pt. has room assigned and transfer paper work should be initiated by her once next shift ready to received pt.
[2022-04-29] MEDS ORDERED: LORAZEPAM 2 MG/1 ML VIAL IV PRN (19:45)
[2022-04-29] MEDS ORDERED: LORAZEPAM 2 MG/1 ML VIAL IM PRN (20:00)
[2022-04-29] MEDS ORDERED: HALOPERIDOL LACTATE 5 MG/1 ML VIAL IM ONE (20:00)
[2022-04-29] MEDS ORDERED: LORAZEPAM 2 MG/1 ML VIAL ONE (20:03)
[2022-04-29] MEDS ORDERED: HALOPERIDOL LACTATE 5 MG/1 ML VIAL ONE (20:30)
[2022-04-29] MEDS: MELATONIN 3 MG TABLET PO SCH (21:00)
[2022-04-29] MEDS: ATORVASTATIN 10 MG TABLET PO SCH (21:00)
[2022-04-29] MEDS: LATANOPROST OPHT DROP 2.5 ML BOTTLE EACHEYE SCH (21:00)
--- NOTE | 2022-04-29 21:05 | NUR ---
GAVE REPORT TO
--- NOTE | 2022-04-29 22:20 | NUR ---
Pt. admitted to tele , under care of TREND INVESTIGATOR Jhoana Swartz Dx: GI bleed Belongs List completed pt admitted in stable condition, afebrile. No SOB or labored breathing. Denied any pain/discomfort.
--- NOTE | 2022-04-29 22:20 | NUR ---
Received pt from er via [facility]. Under the care of Marie Swartz Np. Dx: Gi bleed. Belonging list done.Admission process and care plan initiated. penitentiary assessment done. Skin issues charted. Pt on room air. Iv intact. Safety and comfort provided. Will continue to monitor.
[2022-04-29 22:48] VITALS: BP 133/58
[2022-04-29] MEDS: IV NS 1000 ML 1,000 ML IV PRN (23:12)
[2022-04-30 00:15] VITALS: BP 125/65
[2022-04-30 04:00] VITALS: BP 118/49
[2022-04-30 06:18] LABS: MEAN CORPUSCULAR HEMOGLOBIN 27.4 uug (24.7-32.8); MEAN CORPUSCULAR VOLUME 83.3 fL (75.5-95.3); PLATELET COUNT (AUTO) 200 K/uL (179-408)
--- NOTE | 2022-04-30 06:19 | NUR ---
Pt in no acute distress. Pt on sinus bradycardia . Iv intact. Pt vital signs stable.Pt understand that we need to collect urine from her. Pt easily agitated. Needs reorientation. Safety and comfort provided. All needs are met. Will endorse for continuity of care.
[2022-04-30 07:09] LABS: ALANINE AMINOTRANSFERASE 18 U/L (14-59); ALKALINE PHOSPHATASE 67 U/L (50-136); ASPARTATE AMINOTRANSFERASE 19 U/L (15-37); BILIRUBIN,TOTAL 0.5 mg/dL (0.2-1.0); CARBON DIOXIDE 23 mmol/L (21-32); CHLORIDE 111 mmol/L (98-107); CREATINE KINASE, TOTAL 224 U/L (26-192); CREATININE 0.9 mg/dL (0.6-1.3); GLUCOSE 79 mg/dL (74-106); MAGNESIUM 1.9 mg/dL (1.8-2.4); PHOSPHOROUS 3.9 mg/dL (2.5-4.9); POTASSIUM 3.8 mmol/L (3.5-5.1); TOTAL PROTEIN, SERUM 5.5 g/dL (6.4-8.2); UREA NITROGEN, BLOOD 19 mg/dL (7-18)
[2022-04-30 07:30] VITALS: BP 112/60
[2022-04-30] MEDS: PANTOPRAZOLE SODIUM 40 MG VIAL IV SCH ×2 (08:15→21:00)
[2022-04-30] MEDS: DOCUSATE SODIUM 100 MG CAPSULE PO SCH ×2 (08:20→16:17)
[2022-04-30] MEDS: BETA CAROTENE/VIT C & E/MIN TABLET PO SCH (08:20)
[2022-04-30] MEDS: CYANOCOBALAMIN 1,000 MCG TABLET PO SCH (08:20)
[2022-04-30] MEDS: CHOLECALCIFEROL 1,000 UNIT TABLET PO SCH (08:20)
[2022-04-30] MEDS: SERTRALINE HCL 50 MG TABLET PO SCH (08:20)
[2022-04-30] MEDS: DORZOLAMIDE/TIMOLOL OPHT DROP 10 ML BOTTLE EACHEYE SCH ×2 (09:00→16:17)
[2022-04-30 11:30] VITALS: BP 121/61
[2022-04-30] MEDS: IV NS 1000 ML 1,000 ML IV PRN (13:10)
[2022-04-30 15:57] VITALS: BP 133/58
[2022-04-30] MEDS ORDERED: PANT40TA2 PO (16:08)
[2022-04-30] MEDS ORDERED: CEPH500C2 PO (16:08)
--- NOTE | 2022-04-30 19:10 | NUR ---
RECEIVED PATIENT SLEEPING IN BED, EASILY AROUSABLE. AAOX3. NOTED TO BE FORGETFUL. NO IV ACCESS. WITH 1:1 SITTER AT BEDSIDE FOR SAFETY. ABLE TO MAKE NEEDS KNOWN. PATIENT DENIES ACUTE DISTRESS AT THIS TIME. SAFETY PRECAUTIONS INITIATED. CALL LIGHT WITHIN REACH.
[2022-04-30 20:00] VITALS: BP 125/49
[2022-04-30] MEDS: ATORVASTATIN 10 MG TABLET PO SCH (20:54)
[2022-04-30] MEDS: LATANOPROST OPHT DROP 2.5 ML BOTTLE EACHEYE SCH (20:54)
[2022-04-30] MEDS: MELATONIN 3 MG TABLET PO SCH (20:54)
[2022-04-30] MEDS: CEphaleXIN 500 MG CAPSULE PO SCH (22:10)
[2022-05-01 04:00] VITALS: BP 135/61
[2022-05-01] MEDS: CEphaleXIN 500 MG CAPSULE PO SCH (05:20)
--- NOTE | 2022-05-01 05:23 | NUR ---
PATIENT SLEPT THROUGH THE NIGHT WITH NO COMPLAINTS. AAOX4. COMPLIANT WITH MEDICATIONS. 1:1 SITTER AT BEDSIDE FOR SAFETY. ABLE TO WALK TO BATHROOM WITH ASSISTANCE. ALL NEEDS ATTENDED TO AND MET. SAFETY PRECAUTIONS MAINTAINED.
[2022-05-01] MEDS ORDERED: PANTOPRAZOLE SODIUM 40 MG TABLET.DR PO SCH (08:00)
[2022-05-01] MEDS: CHOLECALCIFEROL 1,000 UNIT TABLET PO SCH (08:40)
[2022-05-01] MEDS: DOCUSATE SODIUM 100 MG CAPSULE PO SCH ×2 (08:41→09:00)
[2022-05-01] MEDS: SERTRALINE HCL 50 MG TABLET PO SCH (08:41)
[2022-05-01] MEDS: CYANOCOBALAMIN 1,000 MCG TABLET PO SCH (08:41)
[2022-05-01] MEDS: BETA CAROTENE/VIT C & E/MIN TABLET PO SCH (08:41)
[2022-05-01] MEDS: DORZOLAMIDE/TIMOLOL OPHT DROP 10 ML BOTTLE EACHEYE SCH (08:44)
--- NOTE | 2022-05-01 09:00 | NUR ---
awake alert, states wants to go home today, needs attended and safety measures maintained, call light within reach and bed alarm on, took breakfast and meds except Colace
[2022-05-01 09:06] LABS: A/G RATIO 1.1 (0.7-1.7); ALBUMIN 2.9 g/dL (2.9-4.4); ALPHA-1-GLOBULIN 0.3 g/dL (0.0-0.4); ALPHA-2-GLOBULIN 0.7 g/dL (0.4-1.0); BETA GLOBULIN 0.9 g/dL (0.7-1.3); GAMMA GLOBULIN 0.7 g/dL (0.4-1.8); GLOBULIN, TOTAL 2.6 g/dL (2.2-3.9); M-SPIKE Not Observed g/dL (Not Observed)
--- NOTE | 2022-05-01 10:10 | NUR ---
transport from [facility] here to pick her up, discharge papers and belongings with her, ID bracelet removed, escorted to lobby in stable condition per wheelchair
== END 2022-05-01 10:10 | DRG 393 ==
LOC: ER 20:05 → TRANSITION 04-29 01:13 → TELE3 04-29 21:06 → MEDSURG3 04-30 17:52
PROVIDERS: ADMIT Internal Medicine; ATTEND Nurse Practitioner Acute Care
PROC: 30233N1 Transfusion of Nonautologous Red Blood Cells into Peripheral Vein, Percutaneous Approach (ICD-10-PCS; principal; 2022-04-29)
DX: K64.8 Other hemorrhoids (principal); K57.31 Diverticulosis of large intestine without perforation or abscess with bleeding; D62 Acute posthemorrhagic anemia; D68.59 Other primary thrombophilia; E44.0 Moderate protein-calorie malnutrition; G93.40 Encephalopathy, unspecified; I50.32 Chronic diastolic (congestive) heart failure; N39.0 Urinary tract infection, site not specified; I13.0 Hypertensive heart and chronic kidney disease with heart failure and stage 1 through stage 4 chronic kidney disease, or unspecified chronic kidney disease; N20.2 Calculus of kidney with calculus of ureter; B35.1 Tinea unguium; E21.3 Hyperparathyroidism, unspecified; E88.09 Other disorders of plasma-protein metabolism, not elsewhere classified; F03.90 Unspecified dementia, unspecified severity, without behavioral disturbance, psychotic disturbance, mood disturbance, and anxiety; G56.02 Carpal tunnel syndrome, left upper limb; G62.9 Polyneuropathy, unspecified; H35.30 Unspecified macular degeneration; H54.8 Legal blindness, as defined in USA; M19.90 Unspecified osteoarthritis, unspecified site; N18.9 Chronic kidney disease, unspecified; Z20.822 Contact with and (suspected) exposure to COVID-19; Z87.440 Personal history of urinary (tract) infections; Z87.442 Personal history of urinary calculi; Z87.891 Personal history of nicotine dependence; Z95.1 Presence of aortocoronary bypass graft; I12.9 Hypertensive chronic kidney disease with stage 1 through stage 4 chronic kidney disease, or unspecified chronic kidney disease; I73.9 Peripheral vascular disease, unspecified; K44.9 Diaphragmatic hernia without obstruction or gangrene; I25.10 Atherosclerotic heart disease of native coronary artery without angina pectoris; I25.2 Old myocardial infarction; N20.0 Calculus of kidney; Z74.09 Other reduced mobility; K59.00 Constipation, unspecified; H40.9 Unspecified glaucoma; I35.1 Nonrheumatic aortic (valve) insufficiency; K21.00 Gastro-esophageal reflux disease with esophagitis, without bleeding; K29.70 Gastritis, unspecified, without bleeding; Z96.651 Presence of right artificial knee joint; Z85.828 Personal history of other malignant neoplasm of skin
CPT/HCPCS: 36415; 71045; 71275; 82378; 83735; 83970; 84100; 84155; 84165; 84484; 85018; 85025; 85610; 86803; 86850; 86900; 86901; 86920; 87040; 87086; 87806; 93005; 93307; A4663; C9113; G0378; J0696; J1630; J2060; J2405; J7040; P9016

== ENCOUNTER 2022-08-15 13:45 | Emergency (ER) | payer OTHER ==
[~2022-08-15] VITALS: Ht 157.5 cm; Wt 49.9 kg
[~2022-08-15 13:45] MED LIST changes: -ACID1TAB4 PO; -ASPI81TA31 PO; -ATOR10TA PO; +CEPH500C2 PO; +CHOL400C5 PO; -CYAN-51 PO; +CYAN100T44 PO; +DORZ10DR11 OP; -FURO-152 PO; +FURO20TA4 PO; -LOPE2CAP40 PO; -MV-M1TAB18 PO; -NAPR500T6 PO; +PANT40TA2 PO; -SULF1TAB48 PO
--- NOTE | 2022-08-15 13:55 | NUR ---
Dr Harvey at the bedside for MSE.
[2022-08-15] MEDS ORDERED: diphenhydrAMINE 25 MG CAP PO ONE ×2 (14:07→14:15)
[2022-08-15 14:32] LABS: HEMATOCRIT 30.1 % (31.2-41.9); MEAN CORPUSCULAR HEMOGLOBIN 22.5 uug (24.7-32.8); MEAN CORPUSCULAR VOLUME 72.6 fL (75.5-95.3); PLATELET COUNT (AUTO) 398 K/uL (179-408)
[2022-08-15 14:47] LABS: CREATININE 0.9 mg/dL (0.6-1.3); POTASSIUM 3.6 mmol/L (3.5-5.1)
[2022-08-15 14:53] LABS: BILIRUBIN,TOTAL 0.4 mg/dL (0.2-1.0); TOTAL PROTEIN, SERUM 7.2 g/dL (6.4-8.2)
--- NOTE | 2022-08-15 17:10 | NUR ---
Placed a call to [facility] and spoke to Tavia SCHAEFER, notify her of pt's return and ride. ETA for transport is 10 min.
--- NOTE | 2022-08-15 17:26 | NUR ---
Patient discharged to home in stable condition. Written and verbal after care instructions given. Patient verbalizes understanding of instructions. Stressed follow up or return to ER for worsening s/s.
[2022-08-15 17:34] VITALS: BP 130/78
== END 2022-08-15 17:34 ==
LOC: ER 13:45
DX: L29.9 Pruritus, unspecified (principal); D64.9 Anemia, unspecified; R23.4 Changes in skin texture; H54.8 Legal blindness, as defined in USA; H35.30 Unspecified macular degeneration; E21.3 Hyperparathyroidism, unspecified; I25.2 Old myocardial infarction; Z88.5 Allergy status to narcotic agent; I25.10 Atherosclerotic heart disease of native coronary artery without angina pectoris; Z85.828 Personal history of other malignant neoplasm of skin; G62.9 Polyneuropathy, unspecified; I73.9 Peripheral vascular disease, unspecified; K21.9 Gastro-esophageal reflux disease without esophagitis; Z79.899 Other long term (current) drug therapy
CPT/HCPCS: 99283; 80053; 85025; 85610; 36415; Q0163; A4663

== ENCOUNTER 2023-01-04 15:09 | Emergency (ER) | payer OTHER ==
[~2023-01-04] VITALS: Ht 152.4 cm; Wt 46.3 kg
--- NOTE | 2023-01-04 15:42 | NUR ---
pt is in room #2b. dr lujan evaluated the pt.
[2023-01-04 15:56] LABS: HEMATOCRIT 33.6 % (31.2-41.9); MEAN CORPUSCULAR HEMOGLOBIN 22.8 uug (24.7-32.8); MEAN CORPUSCULAR VOLUME 72.7 fL (75.5-95.3); PLATELET COUNT (AUTO) 327 K/uL (179-408)
[2023-01-04 16:29] LABS: CREATININE 0.8 mg/dL (0.6-1.3); POTASSIUM 3.4 mmol/L (3.5-5.1)
[2023-01-04 16:38] LABS: BILIRUBIN,DIRECT 0.1 mg/dL (0.0-0.2); BILIRUBIN,TOTAL 0.4 mg/dL (0.2-1.0); TOTAL PROTEIN, SERUM 6.9 g/dL (6.4-8.2)
[2023-01-04 17:15] LABS: LYMPHOCYTES % (MANUAL) 23 % (20-40); MONOCYTES % (MANUAL) 11 % (2-10); NEUTROPHILS % (MANUAL) 66 % (42-75)
[2023-01-04] MEDS ORDERED: POTASSIUM CHLORIDE 20 MEQ TAB.PRT.SR PO ONE (17:45)
[2023-01-04] MEDS ORDERED: ATOR40TA PO (17:51)
[2023-01-04] MEDS ORDERED: MAG30ORA PO (17:51)
[2023-01-04] MEDS ORDERED: ACET-2154 PO (17:51)
[2023-01-04] MEDS ORDERED: POTASSIUM CHLORIDE 20 MEQ TAB.PRT.SR ONE (17:53)
--- NOTE | 2023-01-04 18:43 | NUR ---
[facility] WAS CALLED TO TRANSFER PT TO HER NURSING FACILITY VIA BLS AMBULANCE. ETA IS 75 MINUTES.
--- NOTE | 2023-01-04 19:27 | NUR ---
PICKED UP BY [facility]
[2023-01-04 19:29] VITALS: BP 110/80
== END 2023-01-04 19:29 ==
LOC: ER 15:09
DX: Z04.3 Encounter for examination and observation following other accident (principal); I25.2 Old myocardial infarction; H54.8 Legal blindness, as defined in USA; E21.3 Hyperparathyroidism, unspecified; Z85.828 Personal history of other malignant neoplasm of skin; K21.9 Gastro-esophageal reflux disease without esophagitis; I25.10 Atherosclerotic heart disease of native coronary artery without angina pectoris; M19.90 Unspecified osteoarthritis, unspecified site; Z79.899 Other long term (current) drug therapy; Z88.5 Allergy status to narcotic agent; E78.00 Pure hypercholesterolemia, unspecified; G31.84 Mild cognitive impairment of uncertain or unknown etiology
CPT/HCPCS: 36415; 70030-TC; 70450; 71045; 72170; 73551; 85025; 93005; A4663

== ENCOUNTER 2023-01-18 18:41 | Inpatient (IN) | payer OTHER ==
[~2023-01-18] VITALS: Ht 152.4 cm; Wt 49.4 kg
[~2023-01-18 18:41] MED LIST changes: +ACET-2154 PO; +ATOR40TA PO; -CEPH500C2 PO; +DORZ10DR11 EACHEYE; -DORZ10DR11 OP; +MAG30ORA PO
[2023-01-18] MEDS ORDERED: NITROGLYCERIN OINT 1 GM PACKET TP ONE ×2 (19:23→19:30)
[2023-01-18 19:54] LABS: HEMATOCRIT 32.7 % (31.2-41.9); MEAN CORPUSCULAR HEMOGLOBIN 23.2 uug (24.7-32.8); MEAN CORPUSCULAR VOLUME 73.3 fL (75.5-95.3); PLATELET COUNT (AUTO) 293 K/uL (179-408)
[2023-01-18 20:23] LABS: CARBON DIOXIDE 28 mmol/L (21-32); CHLORIDE 103 mmol/L (98-107); CREATININE 0.8 mg/dL (0.6-1.3); GLUCOSE 112 mg/dL (74-106); POTASSIUM 3.8 mmol/L (3.5-5.1); UREA NITROGEN, BLOOD 20 mg/dL (7-18)
[2023-01-18] MEDS ORDERED: IV NORMAL SALINE 250 ML IV ONE (21:19)
[2023-01-18] MEDS ORDERED: SWABABLE VALVE TRANSFER SET EA MC ONE (21:19)
[2023-01-18] MEDS ORDERED: IOHEXOL 350 100 ML INFUS..BTL ONE (21:20)
[2023-01-18 21:33] LABS: IRON, SERUM 25 ug/dL (50-175)
[2023-01-18 22:35] LABS: LYMPHOCYTES % (MANUAL) 24 % (20-40); MONOCYTES % (MANUAL) 9 % (2-10); NEUTROPHILS % (MANUAL) 67 % (42-75)
[2023-01-18 23:35] LABS: *BILIRUBIN,URIN NEGATIVE (NEGATIVE); *CLARITY,URINE CLEAR (CLEAR); *COLOR,URINE YELLOW (YELLOW); *KETONES,URINE NEGATIVE (NEGATIVE); *UROBILINOGEN,URINE 0.2 E.U./dl (NORMAL); LEUKOCYTE ESTERASE ,URINE 1+ (NEGATIVE); NITRITE, URINE NEGATIVE (NEGATIVE); UGLUCOSE NEGATIVE (NEGATIVE)
[2023-01-19 00:03] LABS: *BLOOD, URINE TRACE (NEGATIVE)
[2023-01-19] MEDS ORDERED: CEFTRIAXONE 1 G in IV DEXTROSE 5% 50 ML IV ONE (02:30)
[2023-01-19] MEDS ORDERED: ASPIRIN 81 MG TAB.CHEW PO ONE (02:30)
[2023-01-19 02:36] LABS: SQUAMOUS EPITHELIAL CELL,UR MODERATE /HPF (NONE SEEN)
[2023-01-19 02:37] LABS: BACTERIA,URINE FEW /HPF (NONE SEEN); CALCIUM OXALATE CRYSTALS,UR FEW /HPF (NONE SEEN)
[2023-01-19] MEDS ORDERED: REMEDY ESSENTIAL ZINC PASTE 113 GM TP PRN (02:45)
[2023-01-19] MEDS ORDERED: MORPHINE SULFATE 2 MG/1 ML DISP.SYRIN IV PRN (02:45)
[2023-01-19] MEDS ORDERED: ONDANSETRON 4 MG/2 ML VIAL IV PRN (02:45)
[2023-01-19] MEDS ORDERED: MAGNESIUM HYDROXIDE 30 ML LIQUID UDC PO PRN (02:45)
[2023-01-19] MEDS ORDERED: ACETAMINOPHEN 325 MG TABLET PO PRN (02:45)
[2023-01-19] MEDS ORDERED: CEFTRIAXONE /D5W 50ML IVPB **ER PYXIS IV ONE (02:57)
[2023-01-19] MEDS ORDERED: ASPIRIN 81 MG TAB.CHEW ONE (02:57)
[2023-01-19] MEDS ORDERED: NITROGLYCERIN 0.4 MG/TAB BOTTLE SL ONE (04:03)
[2023-01-19 04:58] VITALS: BP 107/61
[2023-01-19] MEDS: ENOXAPARIN SODIUM 30 MG/0.3 ML DISP.SYRIN SQ SCH ×2 (05:31→21:00)
[2023-01-19 07:19] LABS: HEMATOCRIT 26.8 % (31.2-41.9); MEAN CORPUSCULAR HEMOGLOBIN 23.3 uug (24.7-32.8); MEAN CORPUSCULAR VOLUME 72.1 fL (75.5-95.3); PLATELET COUNT (AUTO) 273 K/uL (179-408)
[2023-01-19 07:48] LABS: THYROID STIMULATING HORMONE 0.373 mIU/mL (0.358-3.740)
[2023-01-19 07:53] LABS: CREATININE 0.7 mg/dL (0.6-1.3); MAGNESIUM 1.9 mg/dL (1.8-2.4); PHOSPHOROUS 4.2 mg/dL (2.5-4.9); POTASSIUM 3.4 mmol/L (3.5-5.1)
[2023-01-19] MEDS ORDERED: PANTOPRAZOLE SODIUM 40 MG VIAL IV SCH (09:00)
[2023-01-19] MEDS ORDERED: DORZOLAMIDE/TIMOLOL OPHT DROP 10 ML BOTTLE OP SCH (09:00)
[2023-01-19] MEDS ORDERED: PANTOPRAZOLE SODIUM 40 MG TABLET.DR PO SCH (09:00)
[2023-01-19] MEDS: ASPIRIN 81 MG TAB.CHEW PO SCH (09:06)
[2023-01-19] MEDS: DOCUSATE SODIUM 100 MG CAPSULE PO SCH ×2 (09:06→16:54)
[2023-01-19] MEDS: CYANOCOBALAMIN 1,000 MCG TABLET PO SCH (09:07)
[2023-01-19] MEDS: SERTRALINE HCL 50 MG TABLET PO SCH (09:07)
[2023-01-19] MEDS: FUROSEMIDE 20 MG TABLET PO SCH (09:07)
[2023-01-19] MEDS: BETA CAROTENE/VIT C & E/MIN TABLET PO SCH (09:07)
[2023-01-19] MEDS: LISINOPRIL 20 MG TABLET PO SCH (09:35)
[2023-01-19] MEDS ORDERED: POTASSIUM CHLORIDE 20 MEQ TAB.PRT.SR PO ONE (10:00)
[2023-01-19 11:58] VITALS: BP 106/66
[2023-01-19 16:04] VITALS: BP 104/65
[2023-01-19] MEDS: IV NS 1000 ML 1,000 ML IV PRN (16:38)
[2023-01-19] MEDS: DORZOLAMIDE/TIMOLOL OPHT DROP 10 ML BOTTLE EACHEYE SCH (17:00)
[2023-01-19 20:40] VITALS: BP 125/66
[2023-01-19] MEDS: LATANOPROST OPHT DROP 2.5 ML BOTTLE EACHEYE SCH (21:03)
[2023-01-19] MEDS: ATORVASTATIN 40 MG TABLET PO SCH (21:04)
[2023-01-19] MEDS: MELATONIN 3 MG TABLET PO SCH (21:04)
[2023-01-19] MEDS: CEFTRIAXONE 1 G in IV DEXTROSE 5% 50 ML IV SCH (21:04)
[2023-01-20] MEDS: IV NS 1000 ML 1,000 ML IV PRN ×2 (02:50→15:17)
[2023-01-20 04:30] VITALS: BP 120/66
[2023-01-20 07:37] LABS: HEMATOCRIT 27.4 % (31.2-41.9); MEAN CORPUSCULAR HEMOGLOBIN 23.8 uug (24.7-32.8); MEAN CORPUSCULAR VOLUME 72.7 fL (75.5-95.3); PLATELET COUNT (AUTO) 266 K/uL (179-408)
[2023-01-20 07:52] LABS: CARBON DIOXIDE 27 mmol/L (21-32); CHLORIDE 108 mmol/L (98-107); CREATININE 0.6 mg/dL (0.6-1.3); GLUCOSE 88 mg/dL (74-106); MAGNESIUM 1.7 mg/dL (1.8-2.4); PHOSPHOROUS 3.9 mg/dL (2.5-4.9); POTASSIUM 3.4 mmol/L (3.5-5.1); UREA NITROGEN, BLOOD 12 mg/dL (7-18)
[2023-01-20] MEDS: DORZOLAMIDE/TIMOLOL OPHT DROP 10 ML BOTTLE EACHEYE SCH ×2 (09:00→17:42)
[2023-01-20] MEDS: CYANOCOBALAMIN 1,000 MCG TABLET PO SCH (09:15)
[2023-01-20] MEDS: ASPIRIN 81 MG TAB.CHEW PO SCH (09:15)
[2023-01-20] MEDS: DOCUSATE SODIUM 100 MG CAPSULE PO SCH ×2 (09:15→17:42)
[2023-01-20] MEDS: BETA CAROTENE/VIT C & E/MIN TABLET PO SCH (09:15)
[2023-01-20] MEDS: FUROSEMIDE 20 MG TABLET PO SCH (09:15)
[2023-01-20] MEDS: LISINOPRIL 20 MG TABLET PO SCH (09:15)
[2023-01-20] MEDS: SERTRALINE HCL 50 MG TABLET PO SCH (09:16)
[2023-01-20] MEDS ORDERED: MAGNESIUM OXIDE 400 MG TABLET PO ONE (11:00)
[2023-01-20] MEDS ORDERED: POTASSIUM CHLORIDE 20 MEQ TAB.PRT.SR PO ONE (11:00)
[2023-01-20] MEDS: PANTOPRAZOLE SODIUM 40 MG TABLET.DR PO SCH (11:51)
[2023-01-20 12:00] VITALS: BP 101/61
[2023-01-20 16:00] VITALS: BP 126/69
[2023-01-20 19:58] VITALS: BP 111/55
[2023-01-20] MEDS: ATORVASTATIN 40 MG TABLET PO SCH (20:30)
[2023-01-20] MEDS: MELATONIN 3 MG TABLET PO SCH (20:30)
[2023-01-20] MEDS: LATANOPROST OPHT DROP 2.5 ML BOTTLE EACHEYE SCH (20:30)
[2023-01-20] MEDS: ENOXAPARIN SODIUM 30 MG/0.3 ML DISP.SYRIN SQ SCH (20:59)
[2023-01-20] MEDS: CEFTRIAXONE 1 G in IV DEXTROSE 5% 50 ML IV SCH (21:18)
[2023-01-21] MEDS: IV NS 1000 ML 1,000 ML IV PRN ×2 (03:40→14:30)
[2023-01-21 04:25] VITALS: BP 125/69
[2023-01-21] MEDS: PANTOPRAZOLE SODIUM 40 MG TABLET.DR PO SCH (06:17)
[2023-01-21 07:12] LABS: HEMATOCRIT 27.4 % (31.2-41.9); MEAN CORPUSCULAR HEMOGLOBIN 23.5 uug (24.7-32.8); MEAN CORPUSCULAR VOLUME 73.6 fL (75.5-95.3); PLATELET COUNT (AUTO) 266 K/uL (179-408)
[2023-01-21 07:24] LABS: CREATININE 0.6 mg/dL (0.6-1.3)
[2023-01-21] MEDS: DORZOLAMIDE/TIMOLOL OPHT DROP 10 ML BOTTLE EACHEYE SCH ×2 (08:40→17:01)
[2023-01-21] MEDS: BETA CAROTENE/VIT C & E/MIN TABLET PO SCH (08:40)
[2023-01-21] MEDS: FUROSEMIDE 20 MG TABLET PO SCH (08:40)
[2023-01-21] MEDS: DOCUSATE SODIUM 100 MG CAPSULE PO SCH ×2 (08:40→17:00)
[2023-01-21] MEDS: ASPIRIN 81 MG TAB.CHEW PO SCH (08:40)
[2023-01-21] MEDS: CYANOCOBALAMIN 1,000 MCG TABLET PO SCH (08:41)
[2023-01-21] MEDS: SERTRALINE HCL 50 MG TABLET PO SCH (08:41)
[2023-01-21] MEDS: LISINOPRIL 20 MG TABLET PO SCH (08:41)
[2023-01-21 11:10] VITALS: BP 140/70
[2023-01-21] MEDS: GLUCERNA SHAKE 237 ML CAN PO SCH ×2 (12:00→16:14)
[2023-01-21 15:11] VITALS: BP 124/69
[2023-01-21 20:00] VITALS: BP 141/70
[2023-01-21] MEDS: MELATONIN 3 MG TABLET PO SCH (20:34)
[2023-01-21] MEDS: CEFTRIAXONE 1 G in IV DEXTROSE 5% 50 ML IV SCH (20:34)
[2023-01-21] MEDS: ATORVASTATIN 40 MG TABLET PO SCH (20:34)
[2023-01-21] MEDS: ENOXAPARIN SODIUM 30 MG/0.3 ML DISP.SYRIN SQ SCH (20:37)
[2023-01-21] MEDS: LATANOPROST OPHT DROP 2.5 ML BOTTLE EACHEYE SCH (20:38)
[2023-01-22] MEDS: IV NS 1000 ML 1,000 ML IV PRN (02:35)
[2023-01-22 04:00] VITALS: BP 138/70
[2023-01-22] MEDS: PANTOPRAZOLE SODIUM 40 MG TABLET.DR PO SCH (06:24)
[2023-01-22 07:03] LABS: HEMATOCRIT 27.4 % (31.2-41.9); MEAN CORPUSCULAR HEMOGLOBIN 23.5 uug (24.7-32.8); MEAN CORPUSCULAR VOLUME 73.9 fL (75.5-95.3); PLATELET COUNT (AUTO) 253 K/uL (179-408)
[2023-01-22 07:24] LABS: CREATININE 0.6 mg/dL (0.6-1.3); POTASSIUM 4.1 mmol/L (3.5-5.1)
[2023-01-22 08:00] VITALS: BP 114/57
[2023-01-22] MEDS: GLUCERNA SHAKE 237 ML CAN PO SCH (08:00)
[2023-01-22 08:06] LABS: MAGNESIUM 1.8 mg/dL (1.8-2.4); PHOSPHOROUS 3.3 mg/dL (2.5-4.9)
[2023-01-22] MEDS: SERTRALINE HCL 50 MG TABLET PO SCH (09:00)
[2023-01-22] MEDS: BETA CAROTENE/VIT C & E/MIN TABLET PO SCH (09:00)
[2023-01-22] MEDS: FUROSEMIDE 20 MG TABLET PO SCH (09:00)
[2023-01-22] MEDS: DORZOLAMIDE/TIMOLOL OPHT DROP 10 ML BOTTLE EACHEYE SCH (09:00)
[2023-01-22] MEDS: ASPIRIN 81 MG TAB.CHEW PO SCH (09:00)
[2023-01-22] MEDS: CYANOCOBALAMIN 1,000 MCG TABLET PO SCH (09:00)
[2023-01-22] MEDS: DOCUSATE SODIUM 100 MG CAPSULE PO SCH (09:00)
[2023-01-22] MEDS: LISINOPRIL 20 MG TABLET PO SCH (09:00)
[2023-01-22 11:50] VITALS: BP 125/65
[2023-01-22] MEDS ORDERED: NITR100C11 PO ×2 (12:30→12:32)
== END 2023-01-22 13:20 | DRG 205 ==
LOC: ER 18:43 → TELE3 01-19 02:15 → MEDSURG3 01-19 12:06
PROVIDERS: ADMIT Nurse Practitioner Acute Care; ATTEND Nurse Practitioner Acute Care
DX: M94.0 Chondrocostal junction syndrome [Tietze] (principal); G93.41 Metabolic encephalopathy; N13.6 Pyonephrosis; J98.11 Atelectasis; I25.2 Old myocardial infarction; R79.1 Abnormal coagulation profile; I25.10 Atherosclerotic heart disease of native coronary artery without angina pectoris; I35.1 Nonrheumatic aortic (valve) insufficiency; Z95.1 Presence of aortocoronary bypass graft; E78.00 Pure hypercholesterolemia, unspecified; B96.89 Other specified bacterial agents as the cause of diseases classified elsewhere; E21.3 Hyperparathyroidism, unspecified; H54.8 Legal blindness, as defined in USA; H35.30 Unspecified macular degeneration; K21.9 Gastro-esophageal reflux disease without esophagitis; K44.9 Diaphragmatic hernia without obstruction or gangrene; R79.89 Other specified abnormal findings of blood chemistry; G62.9 Polyneuropathy, unspecified; H40.9 Unspecified glaucoma; F03.90 Unspecified dementia, unspecified severity, without behavioral disturbance, psychotic disturbance, mood disturbance, and anxiety; Z79.899 Other long term (current) drug therapy; I10 Essential (primary) hypertension; Z87.440 Personal history of urinary (tract) infections; Z85.828 Personal history of other malignant neoplasm of skin; Z87.442 Personal history of urinary calculi; D50.9 Iron deficiency anemia, unspecified
CPT/HCPCS: 36415; 70030-TC; 71045; 71275; 83550; 83735; 84100; 84443; 84484; 85025; 85730; 93005; 93307; A4663; C9113; G0378; J0696; J1650; J7040; Q9967